=== PATIENT | male | born 1995 | race Caucasian/White ===

== ENCOUNTER 2024-02-06 08:32 | Emergency (ER) | payer BC, SELFPAY ==
--- NOTE | ~2024-02-06 | XR_ITS ---
EXAMINATION: XR wrist LT 2V INDICATION: Right radius fracture post reduction TECHNIQUE: Two views of the right wrist are obtained. COMPARISON: 0911 hours FINDINGS: An oblique intra-articular fracture of the radial styloid has been reduced. Alignment is ne ar anatomic. There is a transverse ulnar styloid avulsion with approximately 3 mm of separation of th e fracture fragments. A splint has been applied. The soft tissues are unremarkable. No additional fra cture is identified. IMPRESSION: 1. Reduced and splinted fractures of the distal radius and ulna. Reviewed, dictated and finalized at location B. ITE GRINDER
--- NOTE | ~2024-02-06 | XR_ITS ---
Left Forearm AP and lateral views of the left forearm were performed. Clinical History: Trauma Findings: There is an intra-articular, mildly displaced fracture of the radial styloid process. There is a fracture of the ulnar styloid process, mildly displaced. No other fracture or dislocation evide nt. Joint spaces are preserved. Soft tissues are unremarkable. Impression: Acute, intraarticular, displaced fracture of the radial styloid process. Acute, displaced fracture of the ulnar styloid process. Reviewed, dictated and finalized at location M. ET FLOOR LAYER APPRENTICE Impression: Acute, intraarticular, displaced fracture of the radial styloid process. Acute, displaced fracture of the ulnar styloid process.
--- NOTE | ~2024-02-06 | XR_ITS ---
Left wrist Technique: PA and lateral views were obtained. Clinical History: Injury Findings: There is an acute, intra-articular fracture of the radial styloid process, displaced, proba chris mildly comminuted. Suspected fracture of the ulnar styloid process. Soft tissues are unremarkable . Impression: Acute intra-articular, mildly displaced fracture the radial styloid process, possibly mildly comminut ed. Suspected fracture the ulnar styloid process, though evaluation is suboptimal due to suboptimal patie nt positioning. Reviewed, dictated and finalized at location M. TED CIRCUIT BOARD ASSEMBLY REPAIRER Impression: Acute intra-articular, mildly displaced fracture the radial styloid process, po ssibly mildly comminuted. Suspected fracture the ulnar styloid process, though evaluation is suboptimal d ue to suboptimal patient positioning.
--- NOTE | ~2024-02-06 | XR_ITS ---
Right wrist Technique: PA, oblique, lateral, and ulnar deviation views were obtained. Clinical History: Pain Findings: No acute fracture or dislocation is seen. Osseous alignment is anatomic. Joint spaces are p reserved. Soft tissues are unremarkable. Impression: Unremarkable right wrist radiographs. Reviewed, dictated and finalized at location . CIPLE SOFTWARE ENGINEER Impression: Unremarkable right wrist radiographs.
[2024-02-06 08:49] VITALS: BP 187/117; PULSE 109; RESP 16; TEMP 36.9; O2SAT 100
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
[2024-02-06 09:47] VITALS: BP 181/95; PULSE 106; RESP 20; O2SAT 99
[2024-02-06] MEDS: fentaNYL CITRATE INJ (*CRX) 100 MCG/2 ML VIAL 50 MCG IV PUSH (09:47)
[2024-02-06 10:21] VITALS: BP 174/90; PULSE 95; RESP 18; TEMP 36.7; O2SAT 97
== END 2024-02-06 10:59 | disposition home or self-care (01) ==
PROVIDERS: Emergency Provider Physician Assistant
DX: S52.512A Displaced fracture of left radial styloid process, initial encounter for closed fracture (principal); S52.612A Displaced fracture of left ulna styloid process, initial encounter for closed fracture; V44.5XXA Car driver injured in collision with heavy transport vehicle or bus in traffic accident, initial encounter
CPT/HCPCS: 25605; 73090; 73100; 73110; 99285; A4565; J3010

== ENCOUNTER 2024-02-09 16:18 | Outpatient (CLI) | payer BC, SELFPAY ==
--- NOTE | ~2024-02-09 | CT_ITS ---
CT OF left wrist with 3-D recons. EXAMINATION: CT wrist LT wo con DATE: 02/09/2024 16:52 INDICATION: Left distal radius fracture TECHNIQUE: Computed tomography (CT) of the left wrist was performed without intravenous contrast. Aut omated exposure control and iterative reconstruction technique were employed. The dose-length product was 427.87 mGy-cm. 3-D volume rendered images created by the technologist on a separate workstation. COMPARISON: X-rays of the left wrist 02/06/2024 FINDINGS: Normal mineralization. Oblique, comminuted intra-articular fracture of the radial styloid, with 7 mm lateral displacement. Oblique minimally comminuted ulnar styloid fracture with up to 5 mm distraction . Ossific fragments are present in the radiocarpal joint space. Tiny, nondisplaced fracture of the tr apezium. Nondisplaced fracture of the body of the hamate bone. Nondisplaced oblique fractures of the proximal aspect of the second and third metacarpal bases. IMPRESSION: Oblique comminuted and displaced radial styloid fracture. 7 mm articular surface gap at the radiocarp al joint. Ossific fragments are present in the radiocarpal joint. Nondisplaced fractures of the trapezium, hamate, and second and third metacarpal bases. Distracted ulnar styloid fracture. Reviewed, dictated and finalized at location K. IMPRESSION: Oblique comminuted and displaced radial styloid fracture. 7 mm articular surfac e gap at the radiocarpal joint. Ossific fragments are present in the radiocarpa l joint. Nondisplaced fractures of the trapezium, hamate, and second and third metacarpa l bases. Distracted ulnar styloid fracture.
== END 2024-02-09 16:19 | disposition home or self-care (01) ==
PROVIDERS: Visit Provider Plastic Surgery
DX: S52.502D Unspecified fracture of the lower end of left radius, subsequent encounter for closed fracture with routine healing (principal); X58.XXXD Exposure to other specified factors, subsequent encounter
CPT/HCPCS: 73200

== ENCOUNTER 2024-02-12 01:13 | Day surgery (SDC) | payer OTHER, BC, SELFPAY ==
[2024-02-10 18:08] VITALS: BMI 39.5
--- NOTE | 2024-02-10 18:15 | PC.NURSE ---
Report to the Outpatient Waiting Room, entrance under the green pavilion located off [facility], at time 11:15AM on date 02-12-24. Planned Procedure Time: 1:15PM. Time changes happen often and if your time is changed the preop area will call you the afternoon before. - You and your visitor will be asked to self-screen and do not enter if you have any COVID symptoms. - A mask is optional within the hospital at this time. Patients may have clear liquids (water, carbonated beverages, clear teas, apple juice) until 8 hours prior to surgery (5:15AM) with a maximum of 20 ounces. - No food from midnight until time of surgery Take the following medications with a SIP of water the morning of surgery: TYLENOL NEEDED FOR PAIN DO NOT STOP ANY OF YOUR OTHER PRESCRIPTION MEDICATIONS PRIOR TO SURGERY ?EXCEPT THE FOLLOWING Medications to discontinue per physician N/A Please no make-up, nail [place], hairspray, perfume, deodorant, or body powder the day of surgery. No jewelry (including any body piercings) or valuables the day of surgery, leave them at home. Please take a shower or bath the night before, or the morning of, surgery with an antibacterial soap. Wear comfortable, loose fitting clothing. - Jewelry must be removed prior to entering the operating room. Rings and piercings that are not removed may be cut off. - The hospital will not accept responsibility for valuables. - Please leave all valuables, including medications, at home the day of surgery. If you are going home after surgery, a licensed drivers' cash clerk must drive you home. - NO public transportation without another adult if you receive anesthesia. - We recommend that an adult stay with you for 24 hours following discharge. - We also recommend that you do not drive, make important decision, drink alcoholic beverages, or take any drugs that were not prescribed by your health care provider for at least 24 hours after your discharge time. Follow any additional instructions given to you from your surgeon. If you or anyone in your household have experienced Covid symptoms in the past week, please notify your surgeon or the nurse liaison at the phone number below for possible testing. Telephone instructions given to PATIENT and asked if any additional questions and then verbalized understanding. Patient advised to call surgeon office or pre surgery nurse liaison [phone] if any additional questions.
--- NOTE | 2024-02-11 11:08 | P.PNAN_ITS ---
Anes - Initial Pre Proc Eval Procedure: Operation Date: 02/12/24 07:30 Proposed Procedures p Open Reduction Internal Fixation Left Distal Radius - Alisha Peña MD Date/Time: 02/11/24 11:08 Surgeon: Alisha Peña MD Pre Op Diagnosis: fx of distal end left radius Patient Data Age: 28 Gender: M Height: 1.85 m Weight: 136 kg Allergies Allergy/AdvReac Type Severity Reaction Status Date / Time No Known Allergies Allergy Verified 02/12/24 06:33 Home Medications Medication Instructions Recorded Confirmed Type ibuprofen 200 mg tablet 400 mg PO PRN PRN Pain 02/10/24 02/12/24 History Patient hx anesthesia problems: none Family hx anesthesia problems: none Results Review: All pre-operative results and documents have been reviewed as part of the pre- operative evaluation. [facility] Past Medical History Medical History (Updated 02/12/24 @ 06:57 by Bud Wiley DO) Family history of malignant hyperthermia Social History Social History (Updated 02/09/24 @ 15:21 by Kourtney Price MA) Smoking packs per day: 1 Smoking cigarettes per day: 20.0 Years smoked: 10 Smoking pack-years: 10.00 Smoking status: Former smoker Tobacco type: cigarettes Second hand tobacco smoke exposure: No Alcohol intake: never Substance use: former Substance use type: marijuana Last use: 2021 Do You Feel Safe in your Home?: Yes Lack of Transportation: No Lack of Food: Never True Current Housing: I Have Housing Concerned About Future Housing: No Difficulty Paying Gas/Electric Bills: No Difficulty Paying for Meds: No Currently Unemployed: No Education: Associate Degree Difficulty w/ Childcare or Family Care: No Living arrangements: alone Spiritual care concerns: No Anes - Eval Final PreProcedure Day of Procedure 02/11/24 11:08 Patient weight: obese Heart: regular rate and rhythm Lungs: clear to auscultation Airway: Mallampati scale class II Neurological: alert and oriented Last oral intake: >/= 8 hours ASA classification: II Emergent: no Anesthetic plan: proceed Anesthesia type and monitoring: general GIVS and LMA and standard monitoring Results Review: All pre-operative results and documents have been reviewed as part of the pre- operative evaluation. Informed Consent: The patient's anesthetic plan and its attendant risks and benefits were discussed with the patient/family/POA. Questions were solicited and answers provided to the satisfaction of the patient/family/POA.
[2024-02-12] VITALS (8 sets, daily range): BP systolic 138–166; BP diastolic 74–91; PULSE 60–87; RESP 14–23; TEMP 36.5–37; O2SAT 94–100
--- NOTE | ~2024-02-12 | XR_ITS ---
EXAMINATION: XR surgery orthopedic DATE: 02/12/2024 09:03 INDICATION: ORIF left radial fracture and pinning of an ulnar styloid fracture TECHNIQUE: 7 fluoroscopic images of the left wrist were obtained during procedure performed by Dr. Ab cintron. Radiologist was not present for the imaging or procedure. The amount of fluoroscopy time us ed during this procedure was 3.9 minutes. COMPARISON: 02/09/2024 FINDINGS: Interval open reduction internal fixation of a comminuted intra-articular fracture of the distal radi us with a variable pitch cannulated compression screw extending from near the tip of the radial stylo id process across the ulnar-sided metaphyseal cortex at the proximal margin of the distal radioulnar joint. Closed reduction and percutaneous pinning of the ulnar styloid fragment. Alignment of both fra ctures post fixation appears near anatomic. IMPRESSION: 1. Fluoroscopy utilized during reduction and fixation of distal radioulnar fractures which are in darrin r anatomic alignment as detailed above. See procedure note for further detail. Reviewed, dictated and finalized at location L. IMPRESSION: 1. Fluoroscopy utilized during reduction and fixation of distal radioulnar frac tures which are in near anatomic alignment as detailed above. See procedure not e for further detail.
--- NOTE | 2024-02-12 07:03 | P.HPUP_ITS ---
History and Physical Update Update Date/Time: 02/12/24 07:03 Patient seen and examined in pre-operative holding area. No interval change in medical history or symptoms. Patient recalls previous discussion of benefits and alternatives to procedure. Continues to desire to proceed with left radial styloid open reduction internal fixation possible ulnar styloid fixation. Reviewed procedure, post-op expectations and risks including but not limited to bleeding, infection, injury to tendon/nerve/vessel, decreased hand function, stiffness, RSD, no change or worsening of symptoms, malunion, nonunion, hardware complications. I discussed the possible use of assistants and their partici pation in the case. Patient stated understanding and signed the consent form wishing to proceed.
--- NOTE | 2024-02-12 07:04 | W.PM.PROC2 ---
Procedure Note - Detailed Date of Procedure 02/12/24 Pre-op Diagnosis left distal radius and ulnar styloid fracture Post-op Diagnosis Same Procedure Performed ORIF left distal radius and ulnar styloid Surgeon Alisha Peña MD Service Associate Steffany Alegre PA-C Anesthesia MAC (with block) Description of Procedure INFORMED CONSENT:The patient was seen and examined and marked in the pre-op area.? The patient signed the consent form. PROCEDURE IN DETAIL: The patient taken back to OR on the stretcher in supine position. Time out performed with anesthesia, surgeon and staff agreeing on patient's name site and surgery to be performed SCDs were placed on the lower extremities and inflated A tourniquet was placed on {left} upper extremity and antibiotics given IV After anesthesia administered sedation I injected {10}cc 1%lido with epi and 0.5% marcaine plain for radial, ulnar and median block at the forearm/wrist level The?{left upper extremity}?was prepped and draped in sterile fashion the??{left upper extremity} was??exsanguinated with Esmarch bandage and tourniquet inflated to 250mmHg Mini C-arm was draped brought onto the field. A manual reduction maneuvers I was able to improve the position of the radial styloid fragment. I proceeded with placing two 0.045 k-wires to fix the radial styloid framgent to the radius. Multiple views of fluoroscopy were utilized to evaluate K-wire placement and fracture reduction. Being happy with the placement and reduction I made an incision between the 2 K-wires K-wires with a 15 blade scalpel through skin and dermis. Littler scissors were used to spread down the K-wires to the periosteum noting there was no impingement of tendons or involvement of the dorsal branch of the radial nerve. Next I proceeded with drilling over the distal K-wire and measuring it and then placing an Arthrex headless cannulated 3.5 mm screw 38 mm in length under fluoroscopic guidance. There was good compression and reduction at the articular surface on multiple views of fluoro. I removed the second k-wire and noted the reduction was maintained. I irrigated with normal saline and closed the skin with 4-0 nylon. I evaluated the ulnar styloid fragment and DRUJ under fluoro and made the decision to proceed with fixation. I provisionally placed a 0.045 K-wire between the ulnar styloid fragment and ulna. This appeared to improve the reduction and stability. I made an incision around the K-wire through skin and dermis with a 15 blade scalpel. Littler scissors were used to spread down to the periosteum noting no involvement of dorsal ulnar nerve or tendon involvement. I initially attempted to place an Arthrex headed cannulated screw after drilling but this wound up displacing the ulnar styloid fragment too medial with compression. I removed the screw and placed a second 0.045 k-wire across the styloid fragment. These crossing k-wires provided good stability of the fragment with live fluoro range of motion and the DRUj stability appeared improved on exam. The pins were trimmed below the skin to be buried. I irrigated with normal saline and closed skin with 4-0 nylon. The incision was covered with xeroform, 4x4s, sol, and a long thumb spica was applied and secured with bry bandages after the tourniquet was let down noting the hand was warm and well perfused.? Patient awaken from anesthesia and transferred to recovery in stable condition Complications - none EBL- 3cc Disposition - home in stable conditions Steffany Alegre PA-C was essential for positioning retraction, fluoroscopy, closure and dressing placement. [facility] Billing Surgery - Charge Forward: Surgery Billing ([id number] [id number] for steffany)
[2024-02-12] MEDS: LACTATED RINGERS 1,000 ML 30 ML IV CONT ×2 (07:37→09:04)
[2024-02-12] MEDS: ceFAZolin 3 GM/D5W 100 ML 100 ML IVPB (07:37)
--- NOTE | 2024-02-12 07:42 | WPDANESPNB ---
Anes - Peripheral Nerve Block Date/Time: 02/12/24 07:42 I have discussed with the patient/family/POA the placement of a peripheral nerve block for post-operative pain management, including associated risks, benefits, complications, and side effects. Alternative methods of post-operative analgesia were detailed. Questions were solicited and answers provided to the satisfaction of the patient/family/POA. Time-Out: A pre-procedural Time-Out was completed immediately before starting the procedure and confirmed: Patient Identification, Site, Procedure, Patient Position and the Availability of Requisite Equipment. Clinical Indications: Acute post-operative pain management requested by the operative surgeon. Nerve Block Insertion Note Anes-nerve block: supraclavicular right Patient position: supine Skin prep: chlorhexidine Needle: 22 gauge, stimulating, insulated echogenic needle. Needle length: 50 mm Technique: ultrasound Injectate: bupivacaine 0.5% with epi 5 mcg/ml (20cc- no epi) Observations: tolerated well Complications: none Procedure start time:: 724 Procedure end time:: 728
[2024-02-12] MEDS: LIDO 1%/EPINEPHRINE 1:100,000 50 ML VIAL 15 ML INFILTRATE (08:04)
== END 2024-02-12 11:10 | disposition home or self-care (01) ==
PROVIDERS: Visit Provider Plastic Surgery
PROC: (CPT 25608; principal; 2024-02-12 07:30)
DX: S52.572A Other intraarticular fracture of lower end of left radius, initial encounter for closed fracture (principal); S52.612A Displaced fracture of left ulna styloid process, initial encounter for closed fracture; G89.18 Other acute postprocedural pain; V49.9XXA Car occupant (driver) (passenger) injured in unspecified traffic accident, initial encounter; Z87.891 Personal history of nicotine dependence; Z68.39 Body mass index [BMI] 39.0-39.9, adult
CPT/HCPCS: 25608; 25652; 64415; 99199; A9270; J0690; J1170; J2250; J2704; J3010; J7120

== ENCOUNTER 2024-02-26 14:54 | Outpatient (CLI) | payer BC, SELFPAY ==
--- NOTE | ~2024-02-26 | XR_ITS ---
XR wrist LT 2V 02/26/2024 15:08 Indication: Left wrist pain Procedure: 2 views left wrist Comparison: 02/06/2024 Findings: There are 2 pins transfixing the ulnar styloid with near-anatomic alignment. There is a sin gle lag screw transfixing the radial styloid which is an anatomic alignment. There is a fracture frag ment ventral to the carpal bones on the lateral view. Impression: 1: Status post internal fixation of radial and ulnar styloid fractures. Reviewed, dictated and finalized at location B. Impression: 1: Status post internal fixation of radial and ulnar styloid fractures.
== END 2024-02-26 14:55 | disposition home or self-care (01) ==
PROVIDERS: PCP Physician Assistant Surgical; Visit Provider Physician Assistant Surgical
DX: S52.502D Unspecified fracture of the lower end of left radius, subsequent encounter for closed fracture with routine healing (principal); X58.XXXD Exposure to other specified factors, subsequent encounter
CPT/HCPCS: 73100

== ENCOUNTER 2024-03-11 15:41 | Outpatient (CLI) | payer BC, SELFPAY ==
--- NOTE | ~2024-03-11 | XR_ITS ---
XR hand LT min 3V 03/11/2024 16:03 Indication: Left hand pain Procedure: 4 views left hand Comparison: 02/26/2024 Findings: There is a single lag screw transfixing the radial styloid process with healing fracture. T here are 2 K wires transfixing ulnar styloid fracture. There is a fracture fragment ventral to the ra dial carpal joint on the lateral view, unchanged. Stable alignment. Radiolucency is identified in the scaphoid distally, possibly degenerative. Impression: 1: Stable alignment of healing radial and ulnar styloid fracture status post intraoperative fixation. Reviewed, dictated and finalized at location A. Impression: 1: Stable alignment of healing radial and ulnar styloid fracture status post in traoperative fixation.
== END 2024-03-11 15:42 | disposition home or self-care (01) ==
LOC: ANHIMG 15:44
PROVIDERS: Visit Provider Physician Assistant Surgical
DX: S52.502D Unspecified fracture of the lower end of left radius, subsequent encounter for closed fracture with routine healing (principal); X58.XXXD Exposure to other specified factors, subsequent encounter
CPT/HCPCS: 73130

== ENCOUNTER 2024-03-17 00:29 | Day surgery (SDC) | payer OTHER, SELFPAY ==
[2024-03-16 11:11] VITALS: BMI 39.6
--- NOTE | 2024-03-16 11:14 | PC.NURSE ---
Report to the Outpatient Waiting Room, entrance under the green pavilion located off [facility], at time 0600 on date 03/17/24. Planned Procedure Time: 0730. Time changes happen often and if your time is changed the preop area will call you the afternoon before. - You and your visitor will be asked to self-screen and do not enter if you have any COVID symptoms. - A mask is optional within the hospital at this time. - No food OR DRINK from midnight until time of surgery Take the following medications with a SIP of water the morning of surgery: N/A DO NOT STOP ANY OF YOUR OTHER PRESCRIPTION MEDICATIONS PRIOR TO SURGERY ?EXCEPT THE FOLLOWING Medications to discontinue per physician: N/A Date to take last dose: N/A Please no make-up, nail tunisian, hairspray, perfume, deodorant, or body powder the day of surgery. No jewelry (including any body piercings) or valuables the day of surgery, leave them at home. Please take a shower or bath the night before, or the morning of, surgery with an antibacterial soap. Wear comfortable, loose fitting clothing. - Jewelry must be removed prior to entering the operating room. Rings and piercings that are not removed may be cut off. - The hospital will not accept responsibility for valuables. - Please leave all valuables, including medications, at home the day of surgery. If you are going home after surgery, a licensed mule driver must drive you home. - NO public transportation without another adult if you receive anesthesia. - We recommend that an adult stay with you for 24 hours following discharge. - We also recommend that you do not drive, make important decision, drink alcoholic beverages, or take any drugs that were not prescribed by your health care provider for at least 24 hours after your discharge time. Follow any additional instructions given to you from your surgeon. If you or anyone in your household have experienced Covid symptoms in the past week, please notify your surgeon or the nurse liaison at the phone number below for possible testing. Telephone instructions given to AHLINA FRANKS and asked if any additional questions and then verbalized understanding. Patient advised to call surgeon office or pre surgery nurse liaison [phone] if any additional questions.
--- NOTE | ~2024-03-17 | XR_ITS ---
XR surgery orthopedic 03/17/2024 07:57 Indication: Pin removal from the left wrist Procedure: 3 fluoroscopic images of the left wrist. 9 seconds of fluoroscopy. Comparison: 02/12/2024 Findings: Serial images of the left wrist demonstrate removal of K wires transfixing the ulnar styloi d. There is a single screw transfixing the radial styloid, partially visualized. Impression: 1: Status post removal of K wires from the distal aspect of the left ulna. Displaced ulnar styloid fr acture reidentified. Reviewed, dictated and finalized at location B. Impression: 1: Status post removal of K wires from the distal aspect of the left ulna. Disp laced ulnar styloid fracture reidentified.
[2024-03-17 06:11] VITALS: BP 156/82; PULSE 73; RESP 20; TEMP 37; O2SAT 99
[2024-03-17] MEDS: LACTATED RINGERS 1,000 ML 30 ML IV CONT (06:50)
--- NOTE | 2024-03-17 06:53 | WPDANESEPPF ---
Anes - Initial Pre Proc Eval Procedure: Operation Date: 03/17/24 07:30 Proposed Procedures p Left Ulnar Styloid Fracture Pin Removal - Alisha Peña MD Date/Time: 03/17/24 06:53 Surgeon: Alisha Peña MD Pre Op Diagnosis: fx lower end of left radius Patient Data Age: 28 Gender: M Height: 1.85 m Weight: 137.3 kg Last Vital Signs Temp 98.6 F 03/17/24 06:11 Pulse 73 03/17/24 06:11 Resp 20 03/17/24 06:11 BP 156/82 H 03/17/24 06:11 Pulse Ox 99 03/17/24 06:11 O2 Del Method Room Air 03/17/24 06:11 Allergies Allergy/AdvReac Type Severity Reaction Status Date / Time No Known Allergies Allergy Verified 03/17/24 06:04 Home Medications Medication Instructions Recorded Confirmed Type No Home Medications 03/16/24 03/17/24 History Patient hx anesthesia problems: hx of malignant hyperthermia (moms first son (half brother) apparently had MH, pt has not been tested. ) Family hx anesthesia problems: none Results Review: All pre-operative results and documents have been reviewed as part of the pre-operative evaluation. [facility] Past Medical History Medical History Family history of malignant hyperthermia Social History Social History Smoking packs per day: 1 Smoking cigarettes per day: 20.0 Years smoked: 10 Smoking pack-years: 10.00 Smoking status: Former smoker Tobacco type: cigarettes Second hand tobacco smoke exposure: No Smoking end date: 12/01/21 Alcohol intake: never Substance use: former Substance use type: marijuana Last use: 2021 Do You Feel Safe in your Home?: Yes Lack of Transportation: No Lack of Food: Never True Current Housing: I Have Housing Concerned About Future Housing: No Difficulty Paying Gas/Electric Bills: No Difficulty Paying for Meds: No Currently Unemployed: No Education: Associate Degree Difficulty w/ Childcare or Family Care: No Living arrangements: alone Spiritual care concerns: No Anes - Eval Final PreProcedure Day of Procedure 03/17/24 06:53 Patient weight: obese Heart: regular rate and rhythm Lungs: clear to auscultation Airway: Mallampati scale class II Neurological: alert and oriented Last oral intake: >/= 8 hours Emergent: no Anesthetic plan: proceed Anesthesia type and monitoring: general GIVS and standard monitoring Results Review: All pre-operative results and documents have been reviewed as part of the pre-operative evaluation. Informed Consent: The patient's anesthetic plan and its attendant risks and benefits were discussed with the patient/family/POA. Questions were solicited and answers provided to the satisfaction of the patient/family/POA.
--- NOTE | 2024-03-17 07:09 | P.HPUP_ITS ---
History and Physical Update Update Date/Time: 03/17/24 07:09 Patient seen and examined in pre-operative holding area. No interval change in medical history or symptoms. Patient recalls previous discussion of benefits and alternatives to procedure. Continues to desire to proceed with left ulnar k- wire removal. Reviewed procedure, post-op expectations and risks including but not limited to bleeding, infection, injury to tendon/nerve/vessel, decreased hand function, stiffness, RSD, no change or worsening of symptoms. I discussed the possible use of assistants and their participation in the case. Patient stated understanding and signed the consent form wishing to proceed.
--- NOTE | 2024-03-17 07:10 | W.PM.PROC2 ---
Procedure Note - Detailed Date of Procedure 03/17/24 Pre-op Diagnosis fx lower end of left radius Post-op Diagnosis Same Procedure Performed removal left ulnar k-wires Surgeon Alisha Peña MD Anesthesia MAC Description of Procedure INFORMED CONSENT: The patient was seen and examined and marked in the pre-op area.? The patient signed the consent form. PROCEDURE IN DETAIL:The patient taken back to OR on the stretcher in supine position. Time out performed with anesthesia, surgeon and staff agreeing on patient's name site and surgery to be performed SCDs were placed on the lower extremities and inflated. A tourniquet was placed on {left} upper extremity and antibiotics given IV After anesthesia administered sedation I injected {7}cc 1%lido with epi and 0.5% marcaine plain at the operative site The?{left upper extremity}?was prepped and draped in sterile fashion the??{left upper extremity} was? exsanguinated with Esmarch bandage and tourniquet inflated to 250mmHg The mini c-arm was brought in and verified the location of the pins. I made an incision through his previous incision over the ulnar styloid through skin and dermis with a 15 blade scalpel. I spread through subq tissue down to the pins which were in the deep subq space. Two pins were removed and verified under c-arm. the ulnar styloid fracture site still visible but on range of motion under fluoro appeared stable. I irrigated with normal saline and closed skin with 4-0 chomic A dressing of xeroform, 4x4, sol, and a thumb spica splint was applied for patient safety, security, and comfort and secured with an bry bandage after the tourniquet was let down noting the hand was warm and well perfused. The patient was then awaken from anesthesia and transferred to the recovery room in stable condition.? Complications - none EBL- 0cc Disposition - home in stable conditions [facility] [place] Surgery - Charge Forward: Surgery Billing ([id number])
[2024-03-17] MEDS: BUPivacaine HCL 0.5% 10 ML AMP 5 ML INFILTRATE (07:43)
[2024-03-17] MEDS: LIDO 1%/EPINEPHRINE 1:100,000 20 ML VIAL 5 ML INFILTRATE (07:44)
[2024-03-17 07:46] VITALS: BP 127/69; PULSE 68; RESP 16; O2SAT 95
[2024-03-17 08:15] VITALS: BP 140/90; PULSE 62; RESP 20
== END 2024-03-17 08:30 | disposition home or self-care (01) ==
PROVIDERS: Visit Provider Plastic Surgery
PROC: (CPT 20680; principal; 2024-03-17 07:30)
DX: Z47.2 Encounter for removal of internal fixation device (principal); S52.572D Other intraarticular fracture of lower end of left radius, subsequent encounter for closed fracture with routine healing; V89.2XXD Person injured in unspecified motor-vehicle accident, traffic, subsequent encounter; Z87.891 Personal history of nicotine dependence; E66.9 Obesity, unspecified; Z68.39 Body mass index [BMI] 39.0-39.9, adult
CPT/HCPCS: 20680; 99199; A9270; J2250; J2704; J3010; J7120

== ENCOUNTER 2024-04-29 14:17 | Outpatient (CLI) | payer OTHER, SELFPAY ==
--- NOTE | ~2024-04-29 | XR_ITS ---
EXAM: XR wrist LT min 3V DATE: 04/29/2024 14:32 HISTORY: 1.5 MNTH FOLLW UP FROM SURG FOR FRACTURE . COMPARISON: 03/11/2024. FINDINGS: Normal mineralization. Uncomplicated distal radial fixation screw. Interval ulnar pin tristin dain. Nonunited ulnar styloid fracture. Chondrocalcinosis. Interval healing change noted in the radial styloid fracture. No new acute fracture or dislocation. No lytic or blastic lesion. Joint spaces are maintained. No erosion or periosteal change. Mild soft tissue swelling about the wrist. IMPRESSION: Interval healing change noted in the internally fixated left radial styloid fracture. No hardware related complication. Nonunited ulnar styloid fracture. Reviewed, dictated and finalized at location K. IMPRESSION: Interval healing change noted in the internally fixated left radial styloid fracture. No hardware related complication. Nonunited ulnar styloid fr acture.
== END 2024-04-29 14:18 | disposition home or self-care (01) ==
PROVIDERS: Visit Provider Physician Assistant Surgical
DX: S52.502D Unspecified fracture of the lower end of left radius, subsequent encounter for closed fracture with routine healing (principal); X58.XXXD Exposure to other specified factors, subsequent encounter
CPT/HCPCS: 73110

== ENCOUNTER 2024-10-15 19:37 | Emergency (ER) | payer BC, SELFPAY ==
[2024-10-15 19:39] VITALS: BP 188/99; PULSE 94; RESP 15; TEMP 36.8; O2SAT 100
--- NOTE | 2024-10-15 22:22 | ECG_ITS ---
Test Date: 2024-10-15 23:02:33 Measurements Intervals [place] Rate: 65 P: 8 RI: 136 QRS: 55 QRSD: 94 T: 5 QT: 405 QTc: 422 Interpretive Statements SINUS RHYTHM DELAYED PRECORDIAL R/S TRANSITION BORDERLINE ST-T WAVE ABNORMALITY- INF/LAT LEADS BASELINE WANDER- II, III BORDERLINE ECG No previous ECG available for comparison Electronically Signed On 10-16-2024 06:15:12 [employer] by Issac Aviles D.O.
[2024-10-15 22:23] VITALS: BP 182/113; PULSE 63; RESP 20; TEMP 36.5; O2SAT 99
[2024-10-15 22:27] VITALS: BP 172/112
[2024-10-15] MEDS: LORazepam (*CRX) 0.5 MG TABLET PO (22:48)
--- NOTE | 2024-10-15 22:51 | ED_ITS ---
HPI - Recheck/Abnormal Lab/Rx General Chief Complaint: Recheck/Abnormal Lab/Rx Stated Complaint: high bp Time Seen by Provider: 10/15/24 21:39 Source: patient Mode of arrival: ambulatory Limitations: no limitations History of Present Illness HPI narrative: Patient is a 29 y/o male who presents to the ED with c/o HTN. Patient reports he saw his PCP yesterday for a routine appt and was found to have elevated BP. He has been having increased anxiety and depression recently d/t his sister recently passing away. He discussed this with PCP and thought elevated BP may be related. He was started on lexapro and advised to monitor/record BPs at home over next 1 week. States today BP has been persistently elevated to 180s systolic/100s diastolic. He then prompted here for further evaluation. He does admit to feeling anxious currently. He c/o very mild CONN. Denies vision changes, CP, SOB, focal weakness/numbness. Denies SI/HI Related Data Home Medications Medication Instructions Recorded Confirmed No Home Medications 03/16/24 03/17/24 Allergies Allergy/AdvReac Type Severity Reaction Status Date / Time No Known Allergies Allergy Verified 10/15/24 19:43 Review of Systems Review of Systems: All systems reviewed & are unremarkable except as noted in HPI. All systems reviewed & are unremarkable except as noted in HPI and below PMFSH Past Medical History Medical History Family history of malignant hyperthermia Social History Social History Smoking packs per day: 1 Smoking cigarettes per day: 20.0 Years smoked: 10 Smoking pack-years: 10.00 Smoking status: Former smoker Tobacco type: cigarettes Second hand tobacco smoke exposure: No Smoking end date: 12/01/21 Alcohol intake: never Substance use: former Substance use type: marijuana Last use: 2021 Do You Feel Safe in your Home?: Yes Lack of Transportation: No Lack of Food: Never True Current Housing: I Have Housing Concerned About Future Housing: No Difficulty Paying Gas/Electric Bills: No Difficulty Paying for Meds: No Currently Unemployed: No Education: Associate Degree Difficulty w/ Childcare or Family Care: No Living arrangements: alone Spiritual care concerns: No Exam Narrative: GENERAL: Well appearing, well-nourished, non-toxic, in no acute distress. HEAD: Normocephalic, atraumatic. RESPIRATORY: Airway patent, respirations nonlabored. CARDIOVASCULAR: Regular rate and rhythm MUSCULOSKELETAL: Moves all extremities. No gross deformities. SKIN: Warm, dry, normal color. NEURO: A&O X3. Speech clear. Cranial nerves II-XII grossly intact. Steady gait. No ataxic movements. No focal deficits. PSYCHIATRIC: Mildly anxious appearing but very insightful into feelings. Normal interaction. Course Vital Signs Vital signs: Vital Signs Temperature 98.3 F 10/15/24 19:39 Pulse Rate 94 10/15/24 19:39 Respiratory Rate 15 10/15/24 19:39 Blood Pressure 188/99 H 10/15/24 19:39 Pulse Oximetry 100 10/15/24 19:39 Oxygen Delivery Room Air 10/15/24 19:39 Temperature 97.7 F 10/15/24 22:23 Pulse Rate 67 10/15/24 23:03 Respiratory Rate 18 10/15/24 23:03 Blood Pressure 165/94 H 10/15/24 23:26 Pulse Oximetry 100 10/15/24 23:03 Oxygen Delivery Room Air 10/15/24 19:39 MDM - Recheck/Abnormal Lab/Rx MDM Narrative Medical decision making narrative: Patient presented to ED with elevated blood pressure, anxiety, recent stressful events. BP upon arrival 188/99. Patient is neurovascularly intact. Asymptomatic. Reports very mild headache but states this has only been ongoing for about 1 hour. No chest pain, dizziness, lightheadedness, vision changes, numbness, weakness. Patient does admit to feeling very anxious currently. He was recently started on Lexapro. He was given small dose of Ativan in the ED an d blood pressure improved consistently into the 160s. Patient is feeling improved. Advised BP is still elevated, but recommended that patient continue with PCP's plan and monitor blood pressures over the next 1 week and follow-up closely with PCP. Will defer hypertensive treatment to PCP for now as they do have an active plan in place. Patient feels comfortable with this. Discussed strict return precautions. He voiced understanding. Patient denies any SI or HI. I did offer to have crisis evaluate patient to provide outpatient psychiatric resources, however patient declined. He states he will continue to follow-up with his PCP for this. I feel comfortable with this. Again no SI or HI. Patient discharged in stable condition. Ambulatory with steady gait. Medical Records Attestation: I reviewed the patient's medical records. ECG Data EKG #1: Attestation: I personally reviewed and interpreted this ECG as follows: ECG completion date: 10/15/24 ECG completion time: 23:02 EKG Interpretation: normal rate (65), sinus rhythm and no ST changes Discharge Plan Discharge Clinical Impression: Elevated blood pressure reading with diagnosis of hypertension, Anxiety Patient Disposition: Home, Self-Care Condition: Stable Instructions: Antibiotic Form, Chronic Hypertension (ED), Hypertension (ED), Anxiety (ED) Additional Instructions: Continue to monitor blood pressure at home and keep recording of this. Continue to take Lexapro as directed. Follow-up with your primary care doctor for further evaluation. Return to the ED if you experience worsening or severe anxiety, thoughts of wanting to harm herself or anyone else, chest pain, difficulty breathing, vision changes, severe dizziness, passing out, numbness or weakness of arm or leg, or any other symptoms of concern. Prescriptions: No Action No Home Medications Follow-up/Referrals: PHYSICIAN,IT SUPPORT ENGINEER [Primary Care Provider] - Time of Disposition: 23:49
[2024-10-15 23:03] VITALS: BP 181/94; PULSE 67; RESP 18; O2SAT 100
[2024-10-15 23:26] VITALS: BP 165/94
== END 2024-10-15 23:58 | disposition home or self-care (01) ==
PROVIDERS: Emergency Provider Physician Assistant
DX: I10 Essential (primary) hypertension (principal); Z87.891 Personal history of nicotine dependence; F41.9 Anxiety disorder, unspecified; R94.31 Abnormal electrocardiogram [ECG] [EKG]
CPT/HCPCS: 93005; 99283; A9270

== ENCOUNTER 2024-10-16 23:05 | Emergency (ER) | payer BC, SELFPAY ==
--- NOTE | 2024-10-16 23:06 | ECG_ITS ---
Test Date: 2024-10-16 23:10:37 Measurements Intervals [place] Rate: 105 P: 22 GA: 150 QRS: 37 QRSD: 92 T: 41 QT: 338 QTc: 448 Interpretive Statements SINUS TACHYCARDIA DELAYED PRECORDIAL R/S TRANSITION BORDERLINE ST ABNORMALITY- INF/LAT LEADS BASELINE ARTIFACT- I, II, III, AVR, AVL, AVF, V4 ABNORMAL ECG Compared to ECG 10/15/2024 23:02:33 HEART RATE HAS INCREASED Electronically Signed On 10-17-2024 07:44:04 FAMILY MEDIATOR by Issac Aviles D.O.
[2024-10-16 23:07] VITALS: BP 201/123; PULSE 105; RESP 25; TEMP 36.6; O2SAT 100
[2024-10-17 02:26] VITALS: BP 160/103; PULSE 72; RESP 18; O2SAT 98
[2024-10-17 03:02] VITALS: BP 141/95; PULSE 70; RESP 17; O2SAT 98
[2024-10-17 04:13] VITALS: BP 139/58; PULSE 74; RESP 17; O2SAT 100
[2024-10-17 04:19] LABS: Basophils Percent Auto 0.3 % (0.2-1.2); Eosinophils Absolute Auto 0.1 K/mm3 (0-0.3); Eosinophils Percent Auto 1.2 % (0-4.4); Hematocrit 45.2 % (42.0-52.0); Hemoglobin 15.3 g/dL (14.0-18.0); Immature Granulocyte Absolute 0.03 K/mm3 (0.00-0.031); Immature Granulocyte Percent A 0.4 % (0-0.5); Lymphocytes Absolute Auto 1.95 K/mm3 (0.9-3.2); Mean Corpuscular HGB Conc 33.8 g/dl (32-36); Mean Corpuscular Hemoglobin 27.6 pg (26-34); Mean Corpuscular Volume 81.4 fl (80-100); Mean Platelet Volume 9.8 fl (7.4-10.4); Monocytes Absolute Auto 0.5 K/mm3 (0.1-0.6); Neutrophils Absolute Auto 5.2 K/mm3 (1.3-6.7); Neutrophils Percent Auto 67.1 % (45.5-73.1); Platelet Count Result 258 k/mm3 (150-375); Red Blood Count 5.55 M/mm3 (4.6-6.20); Red Cell Distribution Width 12.5 % (11.5-14.5); White Blood Count 7.8 K/mm3 (4.5-10.0)
[2024-10-17 04:30] LABS: Alanine Aminotransferase 39 U/L (6-50); Albumin Level 4.5 g/dL (3.5-5.1); Alkaline Phosphatase 102 U/L (38-126); Anion Gap 6 mmol/L (4-12); Aspartate Amino Transferase 28 U/L (17-59); Bilirubin,Total 0.9 mg/dL (0.2-1.3); Blood Urea Nitrogen 14 mg/dL (9-20); Calcium 9.4 mg/dL (8.4-10.2); Carbon Dioxide 29 mmol/L (22-30); Chloride 105 mmol/L (98-107); Estimated CRCL calculation 133 ml/min; Estimated Glomerular Filt Rate > 60; Glucose 102 mg/dL (65-110); Lipase 75 U/L (23-300); Magnesium 2.2 mg/dL (1.6-2.3); Potassium 4.3 mmol/L (3.4-5.0); Sodium 140 mmol/L (137-145)
--- NOTE | 2024-10-17 04:31 | ED.GENADULT ---
HPI - General Adult General Chief complaint: Anxiety Stated complaint: HTN and tachycardia Time Seen by Provider: 10/17/24 02:37 History of Present Illness HPI narrative: Patient 29-year-old gentleman who presents emergency department with chief complaint of elevated blood pressure and elevated heart rate. The patient reports that he was seen in the emergency department yesterday given Ativan and reports that he is also started on anxiety medicines by his primary doctor patient states this evening he felt anxious and his heart rate went up early fast the patient states that bedtime eroded emergency department heart rate has slowed down the patient denies chest pain reports no focal neurological deficits denies headache Related Data Home Medications Medication Instructions Recorded Confirmed No Home Medications 03/16/24 03/17/24 Allergies Allergy/AdvReac Type Severity Reaction Status Date / Time No Known Allergies Allergy Verified 10/17/24 02:27 Review of Systems Review of Systems: A 10 system review of systems was completed on the patient and is negative except for what is stated in the HPI. Nursing and ancillary documentation was reviewed. [facility] Past Medical History Medical History Family history of malignant hyperthermia Social History Social History Smoking packs per day: 1 Smoking cigarettes per day: 20.0 Years smoked: 10 Smoking pack-years: 10.00 Smoking status: Former smoker Tobacco type: cigarettes Second hand tobacco smoke exposure: No Smoking end date: 12/01/21 Alcohol intake: never Substance use: former Substance use type: marijuana Last use: 2021 Do You Feel Safe in your Home?: Yes Lack of Transportation: No Lack of Food: Never True Current Housing: I Have Housing Concerned About Future Housing: No Difficulty Paying Gas/Electric Bills: No Difficulty Paying for Meds: No Currently Unemployed: No Education: Associate Degree Difficulty w/ Childcare or Family Care: No Living arrangements: alone Spiritual care concerns: No Exam Narrative: GENERAL: Well-appearing, well-nourished, and in no acute distress. HEAD: Normocephalic, atraumatic. EYES: PERRLA and EOMI. ENT: Nares clear, no rhinorrhea or epistaxis. Mucous membranes moist. NECK: Supple. CHEST: Clear to auscultation. No respiratory distress. HEART: Regular rate and rhythm. No murmur heard. Normal peripheral pulses. ABDOMEN: Soft, nontender, nondistended, normal active bowel sounds. EXTREMITIES: Normal range of motion. No edema. SKIN: Warm, dry, no rash. NEURO: No focal deficits. Alert and oriented x3. PSYCH: Normal mood and affect. Course Vital Signs Vital signs: Vital Signs Temperature 36.6 C 10/16/24 23:07 Pulse Rate 105 H 10/16/24 23:07 Respiratory Rate 25 H 10/16/24 23:07 Blood Pressure 201/123 H 10/16/24 23:07 Pulse Oximetry 100 10/16/24 23:07 Oxygen Delivery Room Air 10/16/24 23:07 Temperature 36.6 C 10/16/24 23:07 Pulse Rate 74 10/17/24 04:13 Respiratory Rate 17 10/17/24 04:13 Blood Pressure 139/58 L 10/17/24 04:13 Pulse Oximetry 100 10/17/24 04:13 Oxygen Delivery Room Air 10/16/24 23:07 Medical Decision Making MDM Narrative Medical decision making narrative: Differential diagnosis includes left abnormality, hypertensive urgency, dysrhythmia EKG showed no acute ischemic changes, no dysrhythmia Laboratory studies were obtained on the patient which were within normal limits. Vital Signs Vital Signs: Vital Signs Temperature 36.6 C 10/16/24 23:07 Pulse Rate 105 H 10/16/24 23:07 Respiratory Rate 25 H 10/16/24 23:07 Blood Pressure 201/123 H 10/16/24 23:07 Pulse Oximetry 100 10/16/24 23:07 Oxygen Delivery Room Air 10/16/24 23:07 Temperature 36.6 C 10/16/24 23:07 Pulse Rate 74 10/17/24 04:13 Respiratory Rate 17 10/17/24 04:13 Blood Pressure 139/58 L 10/17/24 04:13 Pulse Oximetry 100 10/17/24 04:13 Oxygen Delivery Room Air 10/16/24 23:07 Lab Data 10/17/24 04:14 10/17/24 04:14 Labs: Lab Results 10/17/24 Range/Units 04:14 WBC 7.8 (4.5-10.0) K/mm3 RBC 5.55 (4.6-6.20) M/mm3 Hgb 15.3 (14.0-18.0) g/dL Hct 45.2 (42.0-52.0) % MCV 81.4 (80-100) fl MCH 27.6 (26-34) pg MCHC 33.8 (32-36) g/dl RDW 12.5 (11.5-14.5) % Plt Count 258 (150-375) k/mm3 MPV 9.8 (7.4-10.4) fl Immature Gran % (Auto) 0.4 (0-0.5) % Neut % (Auto) 67.1 (45.5-73.1) % Lymph % (Auto) 25.0 (18.3-44.2) % Hinds % (Auto) 6.0 (2.6-8.5) % Eos % (Auto) 1.2 (0-4.4) % Baso % (Auto) 0.3 (0.2-1.2) % Lymph # (Auto) 1.95 (0.9-3.2) K/mm3 Hinds # (Auto) 0.5 (0.1-0.6) K/mm3 Eos # (Auto) 0.1 (0-0.3) K/mm3 Baso # (Auto) 0.0 (0.0-0.1) K/mm3 Abs Immat Gran (auto) 0.03 (0.00-0.031) K/mm3 Absolute Neuts (auto) 5.2 (1.3-6.7) K/mm3 Absolute Nucleated RBC 0.000 (0.0-0.012) K/mm3 Nucleated RBC % 0.0 (0.0-0.2) % PT Pending INR Pending APTT Pending Sodium 140 (137-145) mmol/L Potassium 4.3 (3.4-5.0) mmol/L Chloride 105 (98-107) mmol/L Carbon Dioxide 29 (22-30) mmol/L Anion Gap 6 (4-12) mmol/L BUN 14 (9-20) mg/dL Creatinine 1.00 (0.7-1.3) mg/dL Estim Creat Clear Calc 133 ml/min Estimated GFR > 60 (59 - ) Glucose 102 (65-110) mg/dL Calcium 9.4 (8.4-10.2) mg/dL Magnesium 2.2 (1.6-2.3) mg/dL Total Bilirubin 0.9 (0.2-1.3) mg/dL AST 28 (17-59) U/L ALT 39 (6-50) U/L Alkaline Phosphatase 102 (38-126) U/L Troponin I Pending Total Protein 8.0 (6.3-8.2) g/dL Albumin 4.5 (3.5-5.1) g/dL Lipase 75 (23-300) U/L Discharge Plan Discharge Clinical Impression: Hypertension Patient Disposition: Home, Self-Care Condition: Stable Instructions: Antibiotic Form, Hypertension (ED) Prescriptions: No Action No Home Medications Follow-up/Referrals: PHYSICIAN,CLERK OF SUPERIOR COURT [Primary Care Provider] - Filipe Morales MD [Physician] - Time of Disposition: 04:35
[2024-10-17 04:41] LABS: Troponin I < 0.012 ng/mL (0.000-0.034)
[2024-10-17 04:52] VITALS: BP 142/94; PULSE 72; RESP 16; TEMP 36.6; O2SAT 100
[2024-10-17 04:52] LABS: Prothrombin Time 13.8 Seconds (11.1-14.7)
[2024-10-17 04:53] LABS: Partial Thromboplastin Time 29.1 Seconds (22.3-36.8)
== END 2024-10-17 04:54 | disposition home or self-care (01) ==
PROVIDERS: Emergency Provider Emergency Medicine
DX: I10 Essential (primary) hypertension (principal); F41.9 Anxiety disorder, unspecified; Z87.891 Personal history of nicotine dependence
CPT/HCPCS: 36415; 80053; 83690; 83735; 84484; 85025; 85610; 85730; 93005; 99284